=== PATIENT | male | born 1960 | race African-American/Black ===

== ENCOUNTER 2022-05-27 04:39 | Day surgery (SDC) | payer OTHER ==
[2022-05-26 09:42] VITALS: BMI 30.8
[2022-05-27 11:17] VITALS: BP 115/67; PULSE 69; RESP 17
[2022-05-27 14:25] VITALS: TEMP 100
== END 2022-05-27 11:29 | disposition home or self-care (01) ==
LOC: JASU-ENDO 04:39
PROVIDERS: ATTEND Internal Medicine Gastroenterology
PROC: 0DBL8ZX Excision of Transverse Colon, Via Natural or Artificial Opening Endoscopic, Diagnostic (ICD-10-PCS; 2022-05-27)
PROC: 0DBK8ZX Excision of Ascending Colon, Via Natural or Artificial Opening Endoscopic, Diagnostic (ICD-10-PCS; principal; 2022-05-27 09:45)
DX: Z12.11 Encounter for screening for malignant neoplasm of colon (principal); K63.5 Polyp of colon; K64.8 Other hemorrhoids; K57.30 Diverticulosis of large intestine without perforation or abscess without bleeding; Z86.010 Personal history of colon polyps
CPT/HCPCS: 88305-TC

== ENCOUNTER 2024-07-07 10:01 | Day surgery (SDC) | payer OTHER ==
[2024-07-05 11:50] VITALS: BMI 30.2
[2024-07-07] MEDS ORDERED: ACETAMINOPHEN INJECTION 100 ML ONE (12:08)
[2024-07-07] MEDS ORDERED: FENTANYL CITRATE/PF 50 MCG/ML VIAL ONE (12:10)
[2024-07-07] MEDS ORDERED: MIDAZOLAM HCL 2 MG/2 ML SINGLE DOSE VIAL ONE (12:10)
[2024-07-07] MEDS ORDERED: PROPOFOL 20 ML ONE ×2 (12:17→12:35)
[2024-07-07 13:44] VITALS: RESP 18
[2024-07-07 14:22] VITALS: BP 112/77; PULSE 66; TEMP 97.7
== END 2024-07-07 14:25 | disposition home or self-care (01) ==
LOC: FASU 10:01
PROVIDERS: ATTEND Urology
PROC: 0VB03ZX Excision of Prostate, Percutaneous Approach, Diagnostic (ICD-10-PCS; principal; 2024-07-07 12:25)
DX: R97.20 Elevated prostate specific antigen [PSA] (principal)
CPT/HCPCS: 88305-TC; 94760; J0131